=== PATIENT | female | born 1975 ===

== ENCOUNTER 2016-10-08 06:30 | Day surgery (SDC) | payer OTHER ==
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
[2016-10-08] MEDS ORDERED: DOXYCYCLINE INJ 100 MG in D5W 250 ML IV ONE (07:00)
[2016-10-08] MEDS ORDERED: LR 1,000 ML IV SCH (07:00)
[2016-10-08] MEDS ORDERED: MIDAZOLAM 2 MG/2 ML VIAL ONE (08:26)
[2016-10-08] MEDS ORDERED: fentaNYL 100 MCG/2 ML INJ ONE (08:52)
[2016-10-08] MEDS ORDERED: PROPOFOL 200 MG/20 ML VIAL ONE ×2 (08:52)
[2016-10-08] MEDS ORDERED: LIDOCAINE 2% 100 MG/5 ML SYR IVP ONE (09:03)
[2016-10-08] MEDS ORDERED: ONDANSETRON 4 MG/2 ML VIAL ONE (09:25)
[2016-10-08] MEDS ORDERED: DEXAMETHASONE 4 MG/ML VIAL ONE (09:25)
[2016-10-08] MEDS ORDERED: KETOROLAC 30 MG/1 ML SDV ONE (09:28)
--- NOTE | 2016-10-08 15:54 | GOP ---
[f rep st] OPERATIVE REPORT DATE OF OPERATION: 10/08/2016 SURGEON: Renetta Kirkpatrick DO SAMPLE PREPARATION SUPERVISOR: None. ANESTHESIA: LMA. PREOPERATIVE DIAGNOSIS: Missed at 6 weeks. POSTOPERATIVE DIAGNOSIS: 1. Missed at 6 weeks. 2. Endocervical polyp. PROCEDURE PERFORMED: 1. Suction D and C. 2. Polypectomy. FINDINGS: The uterus was gently sounded to 9-10 cm. The cervical os was closed. No active bleeding was noted. There was noted to be an endocervical polyp-not bleeding. The cervix was dilated up to a #8 Hegar, and a curved 8 mm suction curette was used. Minimal products of conception were noted. Minimal bleeding was noted after the procedure. There was noted to be some oozing from the tenaculum site. Silver nitrate was used for hemostasis. The specimen sent to pathology. SPECIMENS: Products of conception. ESTIMATED BLOOD LOSS: Less than 50 cc. DESCRIPTION OF PROCEDURE: Patient was taken to the operating room, where anesthesia was obtained without difficulty. The patient was then placed in dorsal lithotomy position, prepped and draped in sterile fashion. The patient was given 100 mg of doxycycline IV prior to start of the case. A bivalve speculum was placed in the vagina. The cervix was gently grasped with a single- tooth tenaculum. The uterus was then gently sounded to 9-10 cm. The cervix was then serially dilated with Abdirashid dilators up to a #8, and an 8 mm curved suction curette was then introduced into the uterus and gently advanced up to the fundus, where a suction curette was performed. This was done multiple times until all products of conception were removed. We then turned our attention to a sharp curettage. This was performed until a gritty texture was appreciated in all 4 quadrants of the uterus. Minimal bleeding was noted at this time. Once again, we advanced the suction curette into the uterus up to the fundus to remove any remaining products of conception. Minimal bleeding was noted at this time. All instruments were removed from the vagina. There was noted to be some oozing from the tenaculum site. Silver nitrate was used, and hemostasis was achieved. At this time, using a polyp forcep, the endocervical polyp that was noted was grasped and gently twisted until it was removed. It was sent to pathology. Hemostasis was noted. Patient tolerated procedure well. No complications. Instrument and sponge count correct x2. The patient was then awakened, taken out of dorsal lithotomy position and taken to the recovery room in stable condition. Patient is O positive. No need for RhoGAM. COMPLICATIONS: None. IV FLUIDS: 700 cc of LR. URINE OUTPUT: The patient emptied her bladder prior to the procedure. /[id number]/MODL MTDD
== END 2016-10-08 11:27 | disposition home or self-care (01) ==
LOC: FOBOP 06:30
PROVIDERS: ATTEND Obstetrics & Gynecology
PROC: 10D17ZZ Extraction of Products of Conception, Retained, Via Natural or Artificial Opening (ICD-10-PCS; principal; 2016-10-08)
PROC: 0UB97ZX Excision of Uterus, Via Natural or Artificial Opening, Diagnostic (ICD-10-PCS; 2016-10-08)
DX: O02.1 Missed abortion (principal); N84.0 Polyp of corpus uteri; Z87.59 Personal history of other complications of pregnancy, childbirth and the puerperium; Z88.0 Allergy status to penicillin
CPT/HCPCS: J1100; J1885; J2001; J2250; J2405; J2704; J3010